=== PATIENT | female | born 1955 | race African-American/Black ===

== ENCOUNTER 2021-09-11 15:13 | Emergency (ER) | payer MEDICARE, MEDICAID ==
[2021-09-11 16:07] LABS: #Eosinphils 0.1 10x3/uL (0.0-0.5); #Monocytes 0.6 10x3/uL (0.0-1.1); #Neutrophils 4.5 10x3/uL (1.5-8.4); %Basophils 0.6 % (0.0-2.0); %Eosinophils 0.7 % (0.0-6.0); %Lymphocytes 24.2 % (18.0-47.0); %Monocytes 8.9 % (0.0-10.0); %Neutrophils 65.3 % (40.0-75.0); Hemoglobin 15.3 g/dL (12.0-15.5); Mean Corpuscular HGB CONC 33.6 g/dL (32.0-36.0); Mean Corpuscular Hemoglobin 27.4 pg (27.0-33.0); Mean Corpuscular Volume 81.5 fl (81.6-98.3); Mean Platelet Volume 11.8 fl (7.4-10.4); Platelet Count 151 10x3/uL (150-450); Red Blood Cell (RBC) Count 5.58 10x6/uL (3.90-5.03); White Blood Cell (WBC) Count 6.9 10x3/uL (3.5-10.5)
[2021-09-11 16:19] LABS: ALT (SGPT) 16 U/L (8-55); AST (SGOT) 15 U/L (5-34); Albumin 4.1 g/dL (3.4-4.8); Alkaline Phosphatase 96 U/L (40-110); Anion Gap 13 mmol/L (10-20); BUN (Urea Nitrogen) 36 mg/dL (9.8-20.1); Bilirubin, Total 1.3 mg/dL (0.2-1.2); Calc. Creatinine Clearance 0 mL/min (70-130); Calcium 9.6 mg/dL (7.8-10.44); Carbon Dioxide 26 mmol/L (23-31); Chloride 104 mmol/L (98-107); Globulin 3.4 g/dL (2.4-3.5); Glucose 93 mg/dL (80-115); Lipase 8 U/L (8-78); Potassium 4.3 mmol/L (3.5-5.1); Protein, Total 7.5 g/dL (5.8-8.1); Sodium 139 mmol/L (136-145)
[2021-09-11] MEDS ORDERED: Ketorolac Tromethamine 30 MG/ML VIAL ONE (18:31)
[2021-09-11 18:44] LABS: Bilirubin Neg (Negative); Blood, Urine 10 (Negative); Clarity Clear (Clear); Glucose, Urine (Dipstick) Normal (Negative); Ketone, Urine Negative (Negative); Leukocyte 500 (Negative); Nitrite Negative (Negative); Protein, Urine (Dipstick) 100 mg/dl (Neg-Trace); Specific Gravity, Urine 1.025 (1.002-1.036)
[2021-09-11 18:50] LABS: Bacteria/HPF Rare-Few HPF (None Seen)
== END 2021-09-11 19:20 | disposition home or self-care (01) ==
LOC: CSHERS 15:13
DX: R10.11 Right upper quadrant pain (principal); N10 Acute pyelonephritis; I11.0 Hypertensive heart disease with heart failure; I50.9 Heart failure, unspecified; K21.9 Gastro-esophageal reflux disease without esophagitis; E78.5 Hyperlipidemia, unspecified; J45.909 Unspecified asthma, uncomplicated; F17.210 Nicotine dependence, cigarettes, uncomplicated
CPT/HCPCS: 36415; 74176; 76705; 80053; 81003; 81015; 83690; 85025; 96372; J1885

== ENCOUNTER 2022-10-30 09:38 | Observation (INO) | payer OTHER ==
[2022-10-30 10:43] LABS: #Eosinphils 0.1 10x3/uL (0.0-0.5); #Monocytes 0.6 10x3/uL (0.0-1.1); %Basophils 0.6 % (0.0-2.0); %Eosinophils 1.1 % (0.0-6.0); %Lymphocytes 20.9 % (18.0-47.0); %Monocytes 8.3 % (0.0-10.0); Hemoglobin 13.2 g/dL (12.0-15.5); Mean Corpuscular HGB CONC 33.6 g/dL (32.0-36.0); Mean Corpuscular Hemoglobin 28.1 pg (27.0-33.0); Mean Corpuscular Volume 83.8 fl (81.6-98.3); Platelet Count 166 10x3/uL (150-450); RBC Distribution Width 14.2 % (11.5-14.5); Red Blood Cell (RBC) Count 4.69 10x6/uL (3.90-5.03); White Blood Cell (WBC) Count 7.2 10x3/uL (3.5-10.5)
[2022-10-30 10:52] LABS: ALT (SGPT) 22 U/L (8-55); AST (SGOT) 18 U/L (5-34); Albumin 3.9 g/dL (3.4-4.8); Alkaline Phosphatase 91 U/L (40-110); Anion Gap 15 mmol/L (10-20); BUN (Urea Nitrogen) 42 mg/dL (9.8-20.1); Bilirubin, Total 0.9 mg/dL (0.2-1.2); Calc. Creatinine Clearance 0 mL/min (70-130); Calcium 9.1 mg/dL (7.8-10.44); Carbon Dioxide 21 mmol/L (23-31); Chloride 111 mmol/L (98-107); Estimated GFR 22; Globulin 2.7 g/dL (2.4-3.5); Glucose 96 mg/dL (80-115); Potassium 4.2 mmol/L (3.5-5.1); Protein, Total 6.6 g/dL (5.8-8.1); Sodium 143 mmol/L (136-145)
[2022-10-30 11:14] LABS: CKMB 2.2 ng/mL (0-6.6)
[2022-10-30] MEDS ORDERED: Furosemide 40 MG/4 ML VIAL ONE (11:55)
[2022-10-30] MEDS ORDERED: Ondansetron ODT 4 MG TAB PO PRN (15:31)
[2022-10-30] MEDS ORDERED: Acetaminophen 325 MG TAB PO PRN (15:31)
[2022-10-30] MEDS ORDERED: Acetaminophen 650 MG Suppository PR PRN (15:31)
[2022-10-30] MEDS ORDERED: Ondansetron PF 4 MG/2 ML Vial IVP PRN (15:31)
[2022-10-30 17:01] LABS: CKMB 2.2 ng/mL (0-6.6)
[2022-10-30 17:31] VITALS: BMI 23.7
[2022-10-30] MEDS: Metoprolol Tartrate 50 MG TAB PO SCH (20:37)
[2022-10-30] MEDS: Hydroxychloroquine Sulfate 200 MG TAB PO SCH (20:37)
[2022-10-31] MEDS: Metoprolol Tartrate 50 MG TAB PO SCH ×2 (04:00→09:52)
[2022-10-31 05:33] LABS: Anion Gap 14 mmol/L (10-20); BUN (Urea Nitrogen) 38 mg/dL (9.8-20.1); Calc. Creatinine Clearance 27 mL/min (70-130); Calcium 8.8 mg/dL (7.8-10.44); Carbon Dioxide 21 mmol/L (23-31); Chloride 109 mmol/L (98-107); Estimated GFR 25; Glucose 98 mg/dL (80-115); Potassium 3.6 mmol/L (3.5-5.1); Sodium 140 mmol/L (136-145)
[2022-10-31 05:37] LABS: #Eosinphils 0.1 10x3/uL (0.0-0.5); #Monocytes 0.8 10x3/uL (0.0-1.1); #Neutrophils 4.6 10x3/uL (1.5-8.4); %Basophils 0.6 % (0.0-2.0); %Eosinophils 1.1 % (0.0-6.0); %Lymphocytes 23.7 % (18.0-47.0); %Monocytes 10.5 % (0.0-10.0); %Neutrophils 63.8 % (40.0-75.0); Hemoglobin 12.7 g/dL (12.0-15.5); Mean Corpuscular HGB CONC 34.3 g/dL (32.0-36.0); Mean Corpuscular Hemoglobin 28.2 pg (27.0-33.0); Mean Platelet Volume 12.2 fl (7.4-10.4); Platelet Count 150 10x3/uL (150-450); RBC Distribution Width 13.9 % (11.5-14.5); Red Blood Cell (RBC) Count 4.51 10x6/uL (3.90-5.03); White Blood Cell (WBC) Count 7.2 10x3/uL (3.5-10.5)
[2022-10-31] MEDS: Furosemide 40 MG/4 ML VIAL SLOW IVP SCH ×2 (07:30→12:48)
[2022-10-31] MEDS ORDERED: Aspirin 81 mg Enteric Coated Tablet PO SCH (09:00)
[2022-10-31] MEDS: Hydroxychloroquine Sulfate 200 MG TAB PO SCH (09:52)
[2022-10-31 13:56] VITALS: BP 140/83; TEMP 97.5
== END 2022-10-31 15:46 | disposition home or self-care (01) ==
LOC: CSHERS 09:38 → CSHTELE 17:08
PROVIDERS: ADMIT Internal Medicine; ATTEND Internal Medicine
DX: I13.0 Hypertensive heart and chronic kidney disease with heart failure and stage 1 through stage 4 chronic kidney disease, or unspecified chronic kidney disease (principal); I50.23 Acute on chronic systolic (congestive) heart failure; N18.9 Chronic kidney disease, unspecified; U07.1 COVID-19; M32.9 Systemic lupus erythematosus, unspecified; E78.5 Hyperlipidemia, unspecified; F17.210 Nicotine dependence, cigarettes, uncomplicated; J45.909 Unspecified asthma, uncomplicated; I25.10 Atherosclerotic heart disease of native coronary artery without angina pectoris; I31.39 Other pericardial effusion (noninflammatory); Z79.899 Other long term (current) drug therapy; Z88.2 Allergy status to sulfonamides; Z88.8 Allergy status to other drugs, medicaments and biological substances; Z91.010 Allergy to peanuts; Z91.040 Latex allergy status; Z95.810 Presence of automatic (implantable) cardiac defibrillator; Z79.82 Long term (current) use of aspirin; Z88.5 Allergy status to narcotic agent; Z91.018 Allergy to other foods
CPT/HCPCS: 71045; 80048; 80053; 82553; 83880; 84484 ×2; 85025 ×2; 87811; 93005; 93306; 96374; 99285; U0003; U0005; 36415; 96376; G0378; J1940

== ENCOUNTER 2024-02-26 13:02 | Emergency (ER) | payer OTHER ==
[2024-02-26] MEDS ORDERED: Acetaminophen 325 MG TAB ONE (13:34)
== END 2024-02-26 14:57 | disposition home or self-care (01) ==
LOC: CSHERS 13:02
DX: M17.11 Unilateral primary osteoarthritis, right knee (principal); I25.10 Atherosclerotic heart disease of native coronary artery without angina pectoris; I13.2 Hypertensive heart and chronic kidney disease with heart failure and with stage 5 chronic kidney disease, or end stage renal disease; N18.6 End stage renal disease; F17.210 Nicotine dependence, cigarettes, uncomplicated

== ENCOUNTER 2024-03-15 15:51 | Observation (INO) | payer OTHER ==
[2024-03-15] MEDS ORDERED: Meclizine HCl 25 MG TAB ONE (16:42)
[2024-03-15 16:46] LABS: #Basophils 0.03 10x3/uL (0.0-0.2); #Eosinphils 0.12 10x3/uL (0.0-0.5); #Monocytes 0.55 10x3/uL (0.0-1.1); #Neutrophils 2.83 10x3/uL (1.5-8.4); %Basophils 0.5 % (0.0-2.0); %Neutrophils 46.3 % (40.0-75.0); Hematocrit 41.8 % (34.9-44.5); Hemoglobin 14.4 g/dL (12.0-15.5); Mean Corpuscular HGB CONC 34.4 g/dL (32.0-36.0); Mean Corpuscular Volume 84.1 fL (81.6-98.3); Platelet Count 144 10x3/uL (150-450); RBC Distribution Width 13.7 % (11.5-14.5); Red Blood Cell (RBC) Count 4.97 10x6/uL (3.90-5.03); White Blood Cell (WBC) Count 6.1 10x3/uL (3.5-10.5)
[2024-03-15 16:54] LABS: ALT (SGPT) 20 U/L (8-55); AST (SGOT) 19 U/L (5-34); Albumin 3.8 g/dL (3.4-4.8); Alkaline Phosphatase 78 U/L (40-110); Anion Gap 12 mmol/L (10-20); BUN (Urea Nitrogen) 47 mg/dL (9.8-20.1); Bilirubin, Total 0.5 mg/dL (0.2-1.2); Calc. Creatinine Clearance 0 mL/min (70-130); Calcium 8.9 mg/dL (7.8-10.44); Carbon Dioxide 25 mmol/L (23-31); Chloride 103 mmol/L (98-107); Estimated GFR 21; Globulin 2.7 g/dL (2.4-3.5); Glucose 74 mg/dL (80-115); Potassium 4.1 mmol/L (3.5-5.1); Protein, Total 6.5 g/dL (5.8-8.1); Sodium 136 mmol/L (136-145)
[2024-03-15 17:00] LABS: Troponin I 0.023 ng/mL (< 0.028)
[2024-03-15] MEDS ORDERED: Apixaban 5 MG TAB ONE (18:32)
[2024-03-15] MEDS ORDERED: hydrALAZINE 20 MG/ML VIAL SLOW IVP PRN (19:39)
[2024-03-15] MEDS ORDERED: Labetalol HCl 100 MG/20 ML VIAL SLOW IVP PRN (19:39)
[2024-03-15] MEDS ORDERED: Acetaminophen 325 MG TAB PO PRN (19:39)
[2024-03-15] MEDS ORDERED: Acetaminophen 650 MG Suppository PR PRN (19:39)
[2024-03-15] MEDS ORDERED: Ondansetron ODT 4 MG TAB PO PRN (19:39)
[2024-03-15] MEDS ORDERED: Ondansetron PF 4 MG/2 ML Vial IVP PRN (19:39)
[2024-03-15] MEDS ORDERED: Aspirin 325 mg Enteric Coated Tablet PO SCH (19:41)
[2024-03-16 02:30] VITALS: BMI 22.9
[2024-03-16 04:25] LABS: #Basophils 0.06 10x3/uL (0.0-0.2); #Eosinphils 0.13 10x3/uL (0.0-0.5); #Monocytes 0.51 10x3/uL (0.0-1.1); %Basophils 1.1 % (0.0-2.0); %Eosinophils 2.3 % (0.0-6.0); %Lymphocytes 38.2 % (18.0-47.0); %Monocytes 8.9 % (0.0-10.0); %Neutrophils 49.1 % (40.0-75.0); Hematocrit 42.7 % (34.9-44.5); Hemoglobin 15.3 g/dL (12.0-15.5); Mean Corpuscular HGB CONC 35.8 g/dL (32.0-36.0); Mean Corpuscular Hemoglobin 29.8 pg (27.0-33.0); Mean Corpuscular Volume 83.2 fL (81.6-98.3); Mean Platelet Volume 11.7 fL (7.4-10.4); Platelet Count 147 10x3/uL (150-450); RBC Distribution Width 13.6 % (11.5-14.5); Red Blood Cell (RBC) Count 5.13 10x6/uL (3.90-5.03); White Blood Cell (WBC) Count 5.7 10x3/uL (3.5-10.5)
[2024-03-16 04:26] LABS: Anion Gap 16 mmol/L (10-20); BUN (Urea Nitrogen) 45 mg/dL (9.8-20.1); Calc. Creatinine Clearance 24 mL/min (70-130); Calcium 9.4 mg/dL (7.8-10.44); Carbon Dioxide 25 mmol/L (23-31); Cardiac Risk 4.3 (Less than 4.5); Chloride 106 mmol/L (98-107); Cholesterol 183 mg/dl (< 200 Desired); Estimated GFR 22; Glucose 148 mg/dL (80-115); HDL Cholesterol 43 mg/dL (>60 Neg Risk); LDL Cholesterol, Calculated 100 mg/dL; Potassium 3.8 mmol/L (3.5-5.1); Sodium 143 mmol/L (136-145); Triglycerides 200 mg/dL (Less than 150)
[2024-03-16] MEDS: Atorvastatin Calcium 40 MG TAB PO SCH ×2 (06:03→21:37)
[2024-03-16] MEDS: Aspirin 325 mg Enteric Coated Tablet PO SCH (06:04)
[2024-03-16] MEDS: Digoxin 0.25 MG TAB PO SCH (09:26)
[2024-03-16] MEDS: Famotidine 20 MG TAB PO SCH (09:28)
[2024-03-16] MEDS: Aspirin 81 mg Enteric Coated Tablet PO SCH (09:29)
[2024-03-16] MEDS: Apixaban 5 MG TAB PO SCH (09:29)
[2024-03-16] MEDS: Famotidine/PF 20 mg/2ml Vial SLOW IVP SCH (09:33)
[2024-03-16] MEDS ORDERED: traMADol HCl 50 MG TAB PO PRN (16:53)
[2024-03-16] MEDS ORDERED: Albuterol 2.5 MG (3 mL) NEB NEB PRN (17:48)
[2024-03-16] MEDS: Gabapentin 100 MG CAP PO SCH (21:36)
[2024-03-16] MEDS: Amlodipine 10 MG TAB PO SCH (21:37)
[2024-03-16] MEDS: traZODone HCl 50 MG TAB PO SCH (21:37)
[2024-03-17 04:16] LABS: #Basophils 0.03 10x3/uL (0.0-0.2); #Eosinphils 0.13 10x3/uL (0.0-0.5); %Basophils 0.6 % (0.0-2.0); %Eosinophils 2.7 % (0.0-6.0); %Lymphocytes 44.6 % (18.0-47.0); %Monocytes 10.4 % (0.0-10.0); %Neutrophils 41.5 % (40.0-75.0); Hematocrit 42.7 % (34.9-44.5); Hemoglobin 14.7 g/dL (12.0-15.5); Mean Corpuscular HGB CONC 34.4 g/dL (32.0-36.0); Mean Corpuscular Hemoglobin 29.1 pg (27.0-33.0); Mean Corpuscular Volume 84.4 fL (81.6-98.3); Mean Platelet Volume 11.4 fL (7.4-10.4); Platelet Count 143 10x3/uL (150-450); RBC Distribution Width 13.8 % (11.5-14.5); Red Blood Cell (RBC) Count 5.06 10x6/uL (3.90-5.03); White Blood Cell (WBC) Count 4.8 10x3/uL (3.5-10.5)
[2024-03-17 04:36] LABS: Anion Gap 13 mmol/L (10-20); BUN (Urea Nitrogen) 44 mg/dL (9.8-20.1); Calc. Creatinine Clearance 27 mL/min (70-130); Calcium 9.2 mg/dL (7.8-10.44); Carbon Dioxide 24 mmol/L (23-31); Chloride 107 mmol/L (98-107); Estimated GFR 25; Glucose 108 mg/dL (80-115); Magnesium 2.3 mg/dL (1.6-2.6); Potassium 3.9 mmol/L (3.5-5.1); Sodium 140 mmol/L (136-145)
[2024-03-17 13:21] LABS: Hemoglobin A1c 6.4 % (4.0-6.0)
[2024-03-17 13:22] VITALS: TEMP 98.2
[2024-03-17] MEDS: Gabapentin 100 MG CAP PO SCH (14:43)
[2024-03-17 16:45] VITALS: BP 123/93
== END 2024-03-17 18:10 | disposition home or self-care (01) ==
LOC: SUATTDRO 15:51 → CSHERS 15:51 → CSHTELE 19:18
PROVIDERS: ADMIT Family Medicine; ATTEND Internal Medicine
PROC: B246ZZZ Ultrasonography of Right and Left Heart (ICD-10-PCS; principal; 2024-03-16)
DX: R29.90 Unspecified symptoms and signs involving the nervous system (principal); I08.1 Rheumatic disorders of both mitral and tricuspid valves; R42 Dizziness and giddiness; R51.9 Headache, unspecified; I13.0 Hypertensive heart and chronic kidney disease with heart failure and stage 1 through stage 4 chronic kidney disease, or unspecified chronic kidney disease; I50.23 Acute on chronic systolic (congestive) heart failure; N18.4 Chronic kidney disease, stage 4 (severe); I73.9 Peripheral vascular disease, unspecified; J44.89 Other specified chronic obstructive pulmonary disease; I42.8 Other cardiomyopathies; I48.0 Paroxysmal atrial fibrillation; I25.10 Atherosclerotic heart disease of native coronary artery without angina pectoris; Z88.2 Allergy status to sulfonamides; Z88.5 Allergy status to narcotic agent; Z88.8 Allergy status to other drugs, medicaments and biological substances; Z87.891 Personal history of nicotine dependence; Z79.01 Long term (current) use of anticoagulants; Z95.810 Presence of automatic (implantable) cardiac defibrillator; Z90.49 Acquired absence of other specified parts of digestive tract; Z90.710 Acquired absence of both cervix and uterus; Z91.018 Allergy to other foods; Z91.040 Latex allergy status; Z91.010 Allergy to peanuts; Z91.011 Allergy to milk products; Z91.013 Allergy to seafood; Z79.82 Long term (current) use of aspirin
CPT/HCPCS: 70450 ×2; 80048 ×2; 80053; 80061; 83036; 83735; 84484; 85025 ×3; 93005; 93306; 93880; 93971; 97116; 97530; 97535; 99285; G0378 ×4; 36415

== ENCOUNTER 2024-07-06 18:17 | Inpatient (IN) | payer MEDICARE, MEDICAID ==
[2024-07-06] MEDS ORDERED: Morphine 4 MG/ML VIAL ONE (18:52)
[2024-07-06] MEDS ORDERED: Ondansetron PF 4 MG/2 ML Vial ONE (18:52)
[2024-07-06 19:18] LABS: #Basophils 0.03 10x3/uL (0.0-0.2); #Eosinophils 0.07 10x3/uL (0.0-0.5); #Monocytes 0.53 10x3/uL (0.0-1.1); #Neutrophils 2.59 10x3/uL (1.5-8.4); %Basophils 0.6 % (0.0-2.0); %Eosinophils 1.3 % (0.0-6.0); %Lymphocytes 38.9 % (18.0-47.0); Hematocrit 42.8 % (34.9-44.5); Mean Corpuscular HGB CONC 32.7 g/dL (32.0-36.0); Mean Corpuscular Hemoglobin 27.8 pg (27.0-33.0); Mean Corpuscular Volume 84.9 fL (81.6-98.3); Mean Platelet Volume 11.5 fL (7.4-10.4); Platelet Count 162 10x3/uL (150-450); RBC Distribution Width 13.1 % (11.5-14.5); Red Blood Cell (RBC) Count 5.04 10x6/uL (3.90-5.03); White Blood Cell (WBC) Count 5.3 10x3/uL (3.5-10.5)
[2024-07-06 19:33] LABS: ALT (SGPT) 12 U/L (8-55); AST (SGOT) 14 U/L (5-34); Albumin 3.6 g/dL (3.4-4.8); Alkaline Phosphatase 78 U/L (40-110); Anion Gap 14 mmol/L (10-20); BUN (Urea Nitrogen) 45 mg/dL (9.8-20.1); Bilirubin, Total 0.7 mg/dL (0.2-1.2); Calc. Creatinine Clearance 0 mL/min (70-130); Calcium 9.5 mg/dL (7.8-10.44); Carbon Dioxide 25 mmol/L (23-31); Chloride 104 mmol/L (98-107); Estimated GFR 14; Globulin 3.4 g/dL (2.4-3.5); Glucose 95 mg/dL (80-115); Lipase 17 U/L (8-78); Potassium 4.6 mmol/L (3.5-5.1); Sodium 138 mmol/L (136-145)
[2024-07-06 19:35] LABS: Bilirubin Neg (Negative); Blood, Urine 10 (Negative); Clarity Slightly Cloudy (Clear); Glucose, Urine (Dipstick) Normal (Negative); Ketone, Urine Negative (Negative); Leukocyte 500 (Negative); Nitrite Negative (Negative); Protein, Urine (Dipstick) 100 mg/dl (Neg-Trace)
[2024-07-06 19:59] LABS: CAUTI Indications for Culture Pelvic or flank pain; RBC/HPF 0-3 HPF (0-3)
[2024-07-06 20:00] LABS: Bacteria/HPF 2+ HPF (None Seen)
[2024-07-06 20:01] LABS: Urine Culture Reflex Yes Yes
[2024-07-06] MEDS ORDERED: cefTRIAXone (ROCEPHIN) 1 GM VIAL ONE (20:11)
[2024-07-06] MEDS ORDERED: Nitroglycerin 0.4 MG TAB 1 EACH ONE (20:40)
[2024-07-06] MEDS ORDERED: Aspirin Chewable 81 MG TAB ONE (20:48)
[2024-07-06 21:28] LABS: Troponin I 0.018 ng/mL (< 0.028)
[2024-07-06] MEDS ORDERED: Nitroglycerin 0.4 MG TAB (25 Tab Bottle) SL PRN (21:59)
[2024-07-06 22:02] VITALS: BMI 23.7
[2024-07-06] MEDS ORDERED: Nicotine 14 MG PATCH TD PRN (22:36)
[2024-07-06] MEDS ORDERED: Ventolin HFA Inhaler 60 PUFF INHALER INH PRN (23:24)
[2024-07-06] MEDS: Apixaban 5 MG TAB PO SCH (23:34)
[2024-07-06] MEDS: Acetaminophen 325 MG TAB PO PRN (23:34)
[2024-07-06] MEDS: traZODone HCl 50 MG TAB PO PRN (23:34)
[2024-07-06] MEDS: Atorvastatin Calcium 40 MG TAB PO SCH (23:34)
[2024-07-06] MEDS: Sodium Chloride 0.9% 1,000 ML IV SCH (23:35)
[2024-07-06] MEDS: Nitroglycerin 2% Ointment 1 INCH/1 GM Packet TOP SCH (23:35)
[2024-07-07 01:30] LABS: Troponin I 0.014 ng/mL (< 0.028)
[2024-07-07 03:40] LABS: #Basophils 0.04 10x3/uL (0.0-0.2); #Eosinophils 0.08 10x3/uL (0.0-0.5); #Monocytes 0.64 10x3/uL (0.0-1.1); #Neutrophils 3.12 10x3/uL (1.5-8.4); %Basophils 0.7 % (0.0-2.0); %Eosinophils 1.3 % (0.0-6.0); %Lymphocytes 36.2 % (18.0-47.0); %Monocytes 10.5 % (0.0-10.0); Hematocrit 39.8 % (34.9-44.5); Hemoglobin 13.1 g/dL (12.0-15.5); Mean Corpuscular HGB CONC 32.9 g/dL (32.0-36.0); Mean Corpuscular Hemoglobin 28.1 pg (27.0-33.0); Mean Corpuscular Volume 85.2 fL (81.6-98.3); Mean Platelet Volume 11.2 fL (7.4-10.4); Platelet Count 155 10x3/uL (150-450); RBC Distribution Width 13.2 % (11.5-14.5); Red Blood Cell (RBC) Count 4.67 10x6/uL (3.90-5.03); White Blood Cell (WBC) Count 6.1 10x3/uL (3.5-10.5)
[2024-07-07 03:59] LABS: Anion Gap 12 mmol/L (10-20); BUN (Urea Nitrogen) 42 mg/dL (9.8-20.1); Calc. Creatinine Clearance 23 mL/min (70-130); Calcium 8.5 mg/dL (7.8-10.44); Carbon Dioxide 23 mmol/L (23-31); Chloride 111 mmol/L (98-107); Estimated GFR 20; Glucose 92 mg/dL (80-115); Magnesium 2.3 mg/dL (1.6-2.6); Phosphorus 2.9 mg/dL (2.3-4.7); Potassium 4.6 mmol/L (3.5-5.1); Sodium 141 mmol/L (136-145)
[2024-07-07] MEDS: Nitroglycerin 2% Ointment 1 INCH/1 GM Packet TOP SCH (06:15)
[2024-07-07] MEDS: Amlodipine 10 MG TAB PO SCH (08:32)
[2024-07-07] MEDS: Pantoprazole DR 40 MG TAB PO SCH (08:33)
[2024-07-07] MEDS: Aspirin 81 mg Enteric Coated Tablet PO SCH (08:33)
[2024-07-07] MEDS: Gabapentin 100 MG CAP PO SCH (08:33)
[2024-07-07] MEDS: Apixaban 5 MG TAB PO SCH (08:33)
[2024-07-07] MEDS: Digoxin 0.25 MG TAB PO SCH (08:34)
[2024-07-07] MEDS: cefTRIAXone\\ROCEPHIN 1 GM in Sodium Chloride 0.9% 100 ML IVPB SCH (20:32)
[2024-07-07] MEDS: Atorvastatin Calcium 40 MG TAB PO SCH (20:32)
[2024-07-08] MEDS: Escitalopram Oxalate 10 mg Tablet PO SCH (09:49)
[2024-07-08] MEDS: Amlodipine 5 MG TAB PO SCH (23:35)
[2024-07-09] MEDS: Pantoprazole DR 40 MG TAB PO SCH (10:21)
[2024-07-09 13:10] VITALS: BP 137/85; TEMP 97.8
== END 2024-07-09 14:45 | disposition home or self-care (01) | DRG 690 ==
LOC: CSHERS 18:17 → CSHTELE 20:33 → OBSVTOIN 07-08 14:54
PROVIDERS: ADMIT Family Medicine; ATTEND Hospitalist
DX: N10 Acute pyelonephritis (principal); I13.0 Hypertensive heart and chronic kidney disease with heart failure and stage 1 through stage 4 chronic kidney disease, or unspecified chronic kidney disease; I50.22 Chronic systolic (congestive) heart failure; I31.39 Other pericardial effusion (noninflammatory); Q61.3 Polycystic kidney, unspecified; N17.9 Acute kidney failure, unspecified; N18.4 Chronic kidney disease, stage 4 (severe); I48.0 Paroxysmal atrial fibrillation; M32.9 Systemic lupus erythematosus, unspecified; J44.9 Chronic obstructive pulmonary disease, unspecified; I25.10 Atherosclerotic heart disease of native coronary artery without angina pectoris; F17.210 Nicotine dependence, cigarettes, uncomplicated; Z79.01 Long term (current) use of anticoagulants; Z88.5 Allergy status to narcotic agent; Z91.040 Latex allergy status; Z95.810 Presence of automatic (implantable) cardiac defibrillator; Z91.010 Allergy to peanuts; Z91.013 Allergy to seafood; Z91.018 Allergy to other foods; Z91.048 Other nonmedicinal substance allergy status; Z79.899 Other long term (current) drug therapy; Z79.82 Long term (current) use of aspirin; Z90.49 Acquired absence of other specified parts of digestive tract
CPT/HCPCS: 36415; 74176; 80048; 80053; 81001; 83690; 83735; 84100; 84484; 85025; 87086; 93005; 93010; 93306; 96374; 96375; 96376; G0378; J0696; J2272; J2405; J7030

== ENCOUNTER 2024-09-23 13:21 | Emergency (ER) | payer MEDICARE, OTHER ==
[2024-09-23] MEDS ORDERED: Ondansetron PF 4 MG/2 ML Vial ONE (13:51)
[2024-09-23] MEDS ORDERED: fentaNYL 50 mcg/mL 1 mL Vial ONE (13:51)
[2024-09-23 14:16] LABS: #Basophils 0.04 10x3/uL (0.0-0.2); #Eosinophils 0.03 10x3/uL (0.0-0.5); #Monocytes 0.58 10x3/uL (0.0-1.1); #Neutrophils 5.43 10x3/uL (1.5-8.4); %Basophils 0.5 % (0.0-2.0); %Eosinophils 0.4 % (0.0-6.0); %Lymphocytes 26.7 % (18.0-47.0); Hematocrit 43.6 % (34.9-44.5); Hemoglobin 14.3 g/dL (12.0-15.5); Mean Corpuscular HGB CONC 32.8 g/dL (32.0-36.0); Mean Corpuscular Hemoglobin 27.2 pg (27.0-33.0); Mean Corpuscular Volume 82.9 fL (81.6-98.3); Mean Platelet Volume 10.9 fL (7.4-10.4); Platelet Count 175 10x3/uL (150-450); RBC Distribution Width 13.3 % (11.5-14.5); Red Blood Cell (RBC) Count 5.26 10x6/uL (3.90-5.03); White Blood Cell (WBC) Count 8.33 10x3/uL (3.5-10.5)
[2024-09-23 14:27] LABS: ALT (SGPT) 14 U/L (8-55); AST (SGOT) 14 U/L (5-34); Albumin 3.7 g/dL (3.4-4.8); Alkaline Phosphatase 99 U/L (40-110); Anion Gap 13 mmol/L (10-20); BUN (Urea Nitrogen) 34 mg/dL (9.8-20.1); Bilirubin, Total 0.7 mg/dL (0.2-1.2); Calc. Creatinine Clearance 0 mL/min (70-130); Calcium 9.6 mg/dL (7.8-10.44); Carbon Dioxide 25 mmol/L (23-31); Chloride 107 mmol/L (98-107); Estimated GFR 21; Globulin 3.8 g/dL (2.4-3.5); Glucose 115 mg/dL (80-115); Lipase 14 U/L (8-78); Potassium 4.1 mmol/L (3.5-5.1); Protein, Total 7.5 g/dL (5.8-8.1); Sodium 141 mmol/L (136-145)
[2024-09-23 14:46] LABS: Bilirubin Neg (Negative); Blood, Urine 10 (Negative); Clarity Clear (Clear); Glucose, Urine (Dipstick) Normal (Negative); Ketone, Urine Negative (Negative); Leukocyte 100 (Negative); Nitrite Negative (Negative); Protein, Urine (Dipstick) 100 mg/dl (Neg-Trace); Urobilinogen Normal mg/dL (Less than 2)
[2024-09-23 15:17] LABS: Bacteria/HPF None Seen HPF (None Seen); CAUTI Indications for Culture Pelvic or flank pain; RBC/HPF 0-3 HPF (0-3); Squamous Epithelial 0-3 HPF (0-3); Urine Culture Reflex No No; WBC/HPF 0-3 HPF (0-3)
== END 2024-09-23 15:36 | disposition home or self-care (01) ==
LOC: CSHERS 13:21
DX: M54.41 Lumbago with sciatica, right side (principal); F17.210 Nicotine dependence, cigarettes, uncomplicated; I25.10 Atherosclerotic heart disease of native coronary artery without angina pectoris; I13.2 Hypertensive heart and chronic kidney disease with heart failure and with stage 5 chronic kidney disease, or end stage renal disease; N18.6 End stage renal disease; I50.9 Heart failure, unspecified; Z95.0 Presence of cardiac pacemaker
CPT/HCPCS: 74176; 80053; 81001; 83690; 85025; 96374; 96375; J2405; J3010

== ENCOUNTER 2025-04-28 19:58 | Emergency (ER) | payer OTHER ==
[2025-04-28] MEDS ORDERED: Dexamethasone 10 MG/ML VIAL ONE (22:31)
== END 2025-04-28 22:39 | disposition home or self-care (01) ==
LOC: CSHERS 19:58
DX: M32.9 Systemic lupus erythematosus, unspecified (principal); I25.10 Atherosclerotic heart disease of native coronary artery without angina pectoris; I13.0 Hypertensive heart and chronic kidney disease with heart failure and stage 1 through stage 4 chronic kidney disease, or unspecified chronic kidney disease; N18.4 Chronic kidney disease, stage 4 (severe); I50.9 Heart failure, unspecified; F17.210 Nicotine dependence, cigarettes, uncomplicated; Z95.0 Presence of cardiac pacemaker
CPT/HCPCS: 96372; 99283; J1100